=== PATIENT | female | born 2000 | race Caucasian/White ===

== ENCOUNTER → 2019-09-12 | Outpatient (CLI) | payer BC ==
--- NOTE | 2019-09-12 17:06 | KCIC ---
KNEE LEFT 4V DATE: 09/12/2019 12:00 AM INDICATION: Knee pain COMPARISON: None. FINDINGS: Bones: There is no evidence of acute fracture or dislocation. Joints: The joint spaces are normal. There is no joint effusion. Miscellaneous: None. IMPRESSION: No acute osseous abnormality. Electronically signed by: Ye Powell MD (09/12/2019 5:04 PM) [id number]
== END | disposition home or self-care (01) ==
LOC: KCIC 15:09
PROVIDERS: ATTEND Family Medicine
DX: M25.562 Pain in left knee (principal)
CPT/HCPCS: 73564